=== PATIENT | male | born 1995 | race Two or more races ===

== ENCOUNTER 2018-12-11 21:46 | Inpatient (IN) | payer OTHER ==
[~2018-12-11] VITALS: Ht 182.9 cm; Wt 81.0 kg
[2018-12-11 23:00] VITALS: BP 125/80
[2018-12-11] MEDS ORDERED: MAGNESIUM HYDROXIDE 30 ML UDC PO PRN (23:00)
[2018-12-11] MEDS ORDERED: HYDROMORPHONE INJ 2 MG/ML DISP.SYRIN IV PRN (23:00)
[2018-12-11] MEDS ORDERED: ACETAMINOPHEN 325 MG TABLET PO PRN (23:00)
[2018-12-11] MEDS ORDERED: ONDANSETRON HCL/PF 4 MG/2 ML VIAL IVP PRN (23:00)
[2018-12-11] MEDS ORDERED: MAG HYDROX/AL HYDROX/SIMETH 30 ML UDC PO PRN (23:00)
[2018-12-11 23:30] VITALS: BP 125/80
[2018-12-11] MEDS: IV LR 1000 ML 1,000 ML IV PRN (23:49)
--- NOTE | 2018-12-11 23:55 | NUR ---
RECEIVE PT FROM [facility] DIRECT ADMIT AT 2325 A/O X4, MOTHER AT BEDSIDE C/O OF RIGHT LOWER ABDOMINAL PAIN AND DECREASED APPETITE. HEAD TO TOE ASSESSMENT IS DONE SKIN IS INTACT, PT NPO. NO NAUSEA AND VOMITING AT THIS TIME. RESPIRATIONS EVEN AND UNLABORED. NO DISTRESS, KEPT CLEAN AND DRY AND COMFORTABLE, WILL CONTINUE TO MONITOR PT. AWAITING SURGEON. Addendum: 12/12/18 at 0630 by MARISA BLANK RN DATE IS 12/11/18 NOT
[2018-12-12] MEDS ORDERED: PIPERACILLIN /TAZOBACTAM 3.375 G in IV D5W 50 ML IV SCH ×2
--- NOTE | 2018-12-12 00:25 | NUR ---
TYLOR NATARAJAN SPOKE TO HIM CLARIFIED ADMIN OF LOVENOX PER [facility] HOLD LOVENOX 40 MG AQ 0100 DOSE NOW FOR SURGERY READ BACK AND VERIFIED ORDERS NOTED AND CARRIED OUT Addendum: 12/12/18 at 0027 by MARISA BLANK RN SQ (SUBCUTANEOUS) NOT AQ
--- NOTE | 2018-12-12 00:46 | NUR ---
S/B [facility]ITAL[facility] EXPLAINED PLAN OF CARE TO THE PT
[2018-12-12] MEDS ORDERED: PIPERACILLIN /TAZOBACTAM 3.375 G VIAL IV ONE (00:54)
[2018-12-12] MEDS ORDERED: ENOXAPARIN SODIUM 40 MG/0.4 ML DISP.SYRIN SQ ONE (01:00)
[2018-12-12] MEDS ORDERED: PANTOPRAZOLE 40 MG VIAL IV ONE (01:00)
[2018-12-12] MEDS ORDERED: PIPERACILLIN /TAZOBACTAM 3.375 G in IV D5W 50 ML IV ONE (01:00)
--- NOTE | 2018-12-12 06:16 | NUR ---
MS RN ASLEEP AND EASILY AWAKEN, PT SLEPT WELL THROUGHOUT THE NIGHT, MAINTAINS NPO, NO COMPLAIN OF PAIN AT THIS TIME AWAITING SURGEON, RESPIRATION EVEN AND UNLABORED, IN NO APPARENT DISTRESS. NEEDS ATTENDED AND ANTICIPATED, KEPT CLEAN AND DRY AND COMFORTABLE. SAFETY MEASURES AT ALL TIMES. ENDORSE TO THE NEXT SHIFT.
[2018-12-12 06:29] LABS: BASOPHILS % (AUTO) 0.5 % (0.0-2.0); EOSINOPHILS % (AUTO) 0.6 % (0.0-6.0); HEMATOCRIT 39 % (39-51); HEMOGLOBIN 13.6 g/dL (13.5-17.5); LYMPHOCYTES % (AUTO) 12.2 % (20.0-44.0); MEAN CORPUSCULAR HGB CONC 34 g/dl (31.0-36.0); MEAN CORPUSCULAR VOLUME 86 fL (80-96); MONOCYTES # (AUTO) 0.6 /CMM (0.1-1.30); MONOCYTES % (AUTO) 6.9 % (2.0-12.0); NEUTROPHILS # (AUTO) 6.7 /CMM (1.8-8.9); NEUTROPHILS % (AUTO) 79.8 % (43.0-81.0); PLATELET COUNT (AUTO) 170 /CMM (150-450); RED BLOOD CELL COUNT(AUTO) 4.56 MIL/uL (4.5-6.0); WHITE BLOOD COUNT (AUTO) 8.4 K/uL (4.3-11.0)
[2018-12-12 06:39] LABS: ALBUMIN 3.3 g/dL (3.4-5.0); BILIRUBIN,DIRECT 0.1 mg/dL (0.0-0.2); BILIRUBIN,TOTAL 0.8 mg/dL (0.2-1.0); CALCIUM, SERUM 8.8 mg/dL (8.5-10.1); CREATININE 0.9 mg/dL (0.6-1.3); MAGNESIUM 1.8 mg/dL (1.8-2.4); PHOSPHORUS 4.6 mg/dL (2.5-4.9); TOTAL PROTEIN, SERUM 6.5 g/dL (6.4-8.2)
--- NOTE | 2018-12-12 07:15 | NUR ---
RN medsurg opening notes Pt is in bed, alert and oriented X4. Respiration is clear, equal and unlabored. PT is NPO. IV fluid is running at 100 ml/hr. Skin is intact. PT is compaining of pain but refused pain medications. Helped repositioning the PT for comfort. Safety precautions is maintained. Bed at low position and call light is within reach. Will continue to monitor.
[2018-12-12 08:00] VITALS: BP 106/48
--- NOTE | 2018-12-12 08:00 | NUR ---
RN MS NOTES DR. Leta GIRARD MADE AWARE OF PT'S LATEST LAB RESULTS AND CT ABD REPORT FROM [place], PER , HE WILL SEE PT TODAY, PT AND FAMILY INFORMED.
[2018-12-12] MEDS: PIPERACILLIN /TAZOBACTAM 3.375 G in IV D5W 100 ML IV SCH ×3 (08:51→23:28)
[2018-12-12] MEDS ORDERED: PANTOPRAZOLE 40 MG VIAL IV SCH (09:00)
--- NOTE | 2018-12-12 11:35 | NUR ---
DARYL Tan NP examined the PT and spoke and discussed with the PT and PT's mom about disease process, plan of care, risks for surgery, options, resumed the regular normal diet. PT and PT's mom verbalize understanding. No pain or distress present at this time.
[2018-12-12 16:00] VITALS: BP 105/63
--- NOTE | 2018-12-12 16:00 | NUR ---
RN MEDSUR NOTES PT is alert and oriented X4. Offered PT pain medications but PT denies any comfort or pain at this time. IV is intact, patent and running LR at @ 100 ml/hr. No nausea and vomiting. PT tolerated well with ADL. Safety precautions is maintained. Bed at low position and call light is within reach. Pt's family at the bed side.
[2018-12-12] MEDS: IV LR 1000 ML 1,000 ML IV PRN (18:09)
--- NOTE | 2018-12-12 18:28 | NUR ---
RN medsurg closing notes PT is alert and oriented X4. PT is eating dinner and denies any pain or discomfort at this time. NO SOB, nausea or vomiting at this time. PT tolerated well with activity. Education and teaching have been given. PT and family verbalize understanding. . All meds have been given. IV at LAC 20 G, intact, patent and running LR @ 100ml/hr. bed at low position and call light is within reach. Pt's family and friends at the bed side
--- NOTE | 2018-12-12 19:32 | NUR ---
RN OPENING NOTES RECEIVED PATIENT AWAKE, RESTING IN BED. FAMILY AT BEDSIDE. PATIENT IS A/O X 4. NO SIGNS OF RESPIRATORY DISTRESS. DENIES SHORTNESS OF BREATH. PATIENT DENIES PAIN OR DISCOMFORT AT THIS TIME. IV SITE PATENT AND INTACT. SAFETY PRECAUTIONS IMPLEMENTED. CALL LIGHT WITHIN REACH. WILL CONTINUE TO MONITOR PATIENT THROUGHOUT THE SHIFT.
[2018-12-12 20:00] VITALS: BP 101/54
[2018-12-12] MEDS ORDERED: ENOXAPARIN SODIUM 40 MG/0.4 ML DISP.SYRIN SQ SCH (21:00)
--- NOTE | 2018-12-13 06:30 | NUR ---
RN CLOSING NOTES PATIENT IS ASLEEP, RESTING COMFORTABLY IN BED. FAMILY IS AT BEDSIDE. PATIENT HAS NO SIGNS OF RESPIRATORY DISTRESS. NO SIGNS OF SHORTNESS OF BREATH. PATIENT HAS NO SIGNS OF FACIAL GRIMACING INDICATING PAIN OR DISCOMFORT AT THIS TIME. IV SITE PATENT AND INTACT. ALL NEEDS WERE MET. ALL MEDICATIONS WERE GIVEN. SAFETY PRECAUTIONS IMPLEMENTED. CALL LIGHT WITHIN REACH. WILL ENDORSE TO AM RN.
--- NOTE | 2018-12-13 07:10 | NUR ---
[facility] RN opening notes PT is resting in bed comfortably. No signs of distress or pain present at this time. No cough. No edema to hands or legs. No nausea or vomiting. IV fluid is running LR at 100 ml/hr. skin is intact. bowel sounds are present in 4 quadrants. Good urine output. PT's family at the bed side. Safety precautions is maintained. Bed at low position and call light is within reach.
[2018-12-13] MEDS ORDERED: PANTOPRAZOLE 40 MG TABLET.DR PO SCH (07:30)
[2018-12-13 08:00] VITALS: BP 122/73
[2018-12-13] MEDS: PIPERACILLIN /TAZOBACTAM 3.375 G in IV D5W 100 ML IV SCH (08:27)
[2018-12-13 15:44] VITALS: BP 108/59
--- NOTE | 2018-12-13 15:45 | NUR ---
RN MS NOTES PT IN BED, AWAKE, ALERT AND ORIENTED, DENIES PAIN, NO COMPLAINT OF NAUSEA, TOLERATING REGULAR FOOT, AMBULATES WITH STEADY GAIT, SEEN BY DR. WAY AND ANDREW OR FIRST ASSIST REGISTERED NURSE, DISCHARGE ORDER GIVEN, DISCHARGE AND MEDICATION INSTRUCTIONS PROVIDED TO PT, VERBALIZED UNDERSTANDING, BELONGINGS ACCOUNTED FOR, NEW PRESCRIPTION GIVEN TO PT, ASSISTED TO HOSPITAL LOBBY, LEFT WITH IN STABLE CONDITION.
[2018-12-13 15:47] VITALS: BP 126/73
[2018-12-13 16:05] VITALS: BP 108/59
== END 2018-12-13 15:40 | disposition home or self-care (01) | DRG 254 ==
LOC: MED 23:16
PROVIDERS: ADMIT Nurse Practitioner Acute Care
DX: K35.80 Unspecified acute appendicitis (principal); K59.00 Constipation, unspecified; R91.8 Other nonspecific abnormal finding of lung field
CPT/HCPCS: 36415; 80048-TC; 80076-TC; 83735-TC; 84100-TC; 85025-TC; 85610-TC; 85730-TC; 86850-TC; 87081-TC; C9113; G0378; J1170; J1650; J2405; J2543; J7060; J7120